=== PATIENT | male | born 1980 | race Caucasian/White ===

== ENCOUNTER 2017-11-18 16:18 | Inpatient (IN) | payer MEDICAID ==
[~2017-11-18] VITALS: Ht 182.9 cm; Wt 80.0 kg
--- NOTE | ~2017-11-18 | OP ---
PATIENT NAME: ARVIND SELBY MEDICAL RECORD: [id number] :76 LOCATION:[facility] ADMISSION DATE:11/18/17 SURGEON: SUGEY ARREDONDO MD DATE OF OPERATION: 11/19/2017 PREOPERATIVE DIAGNOSIS: Left groin mass. POSTOPERATIVE DIAGNOSES: Left groin abscess. PROCEDURE: Excisional debridement of left groin abscess with marsupialization and packing. Dimensions of debridement, including margins, measured 1.9 x 1.8 cm included skin and subcutaneous tissue as well as a portion of the abscess cavity. I sharply debrided back to viable bleeding tissue. SURGEON: Sugey Arredondo MD CHANGE MANAGEMENT LEAD: None. BLOOD LOSS: Minimal. ANESTHESIA: General. COMPLICATIONS: None. OPERATIVE COURSE: The patient was conveyed to the operating room electively on 11/19/2017. General anesthesia was induced by the anesthesia staff. The genitals and lower abdomen were sterilely prepped and draped. A circular incision was accomplished sharply, overlying the swollen area. I dissected down into an abscess cavity. Cultures were obtained. The plug of tissue was excised. I aspirated a significant amount of pus. The aleman of the abscess cavity did not contain granulation tissue, but instead were smooth. I irrigated with hydrogen peroxide. I then marsupialized the wound with a running locking 3-0 Vicryl Rapide suture. We then packed with Iodophor gauze that had had some knots tied in it. A sterile dressing was applied. The patient was then extubated and conveyed to post-anesthesia care unit where he was in stable condition. TRANSINT:[id number] Voice Confirmation ID: [id number] DOCUMENT ID: [id number] SUGEY ARREDONDO MD at 2120 CC: Chiara JERONIMO and AMANUEL BAKER MD [id number] DICTATION DATE: 11/20/171954 MANAGER SOCIAL: 11/20/172127 ADM IN [place] [id number] [place] [address]
[2017-11-18 16:53] LABS: BASOPHILS 0.2 % (0-2); EOSINOPHILS 1.6 % (0-7); HEMATOCRIT 36.4 % (42.0-54.0); HEMOGLOBIN 12.2 g/dL (13.5-17.5); IMMATURE GRANULOCYTES 0.4 % (0-5); LYMPHOCYTES 27.2 % (15-50); MCH 31.7 pg (26.0-34.0); MCHC 33.5 g/dL (31.0-37.0); MCV 94.5 fL (80.0-100.0); MEAN PLATELET VOLUME 11.1 fL (7.4-10.4); MONOCYTES 9.2 % (2-11); NEUTROPHILS 61.4 % (40-80); PLATELET COUNT 181 10x3/uL (130-400); RBC 3.85 10x6/uL (4.20-6.10); RDW 14.3 % (11.5-14.5); WBC 12.9 10x3/uL (4.8-10.8)
[2017-11-18 17:08] LABS: ALBUMIN 3.3 g/dL (3.4-5.0); ALKALINE PHOSPHATASE 59 U/L (46-116); ALT (SGPT) 21 U/L (10-68); BILIRUBIN - TOTAL 0.19 mg/dL (0.2-1.3); CALC OSMOLALITY 277 mosm/kg (275-300); CALCIUM 8.7 mg/dL (8.5-10.1); CARBON DIOXIDE 28.5 mmol/L (21.0-32.0); CHLORIDE - SERUM 102 mmol/L (98-107); CREATININE - SERUM 1.1 mg/dL (0.6-1.3); GLUCOSE 95 mg/dL (74-106); PROTEIN - SERUM 7.5 g/dL (6.4-8.2); SODIUM 139 mmol/L (136-145); UREA NITROGEN 13 mg/dL (7-18); eGFR NON AFRICAN AMERICAN 79 mL/min (90-120)
[2017-11-18 18:50] LABS: APTT 25.7 SECONDS (22.8-39.4); INR 0.95 (0.85-1.17); PROTIME 12.3 SECONDS (11.6-15.0)
[2017-11-18 19:25] LABS: CKMB 0.6 U/L (0.0-3.6); CREATINE KINASE 53 UL (21-232)
[2017-11-18 19:27] LABS: TROPONIN-I < 0.017 ng/mL (0.000-0.060)
[2017-11-19 03:52] VITALS: BP 109/65; BMI 23.9
[2017-11-19 05:38] LABS: BASOPHILS 0.2 % (0-2); EOSINOPHILS 2.2 % (0-7); HEMATOCRIT 35.6 % (42.0-54.0); HEMOGLOBIN 11.8 g/dL (13.5-17.5); IMMATURE GRANULOCYTES 0.4 % (0-5); LYMPHOCYTES 33.4 % (15-50); MCH 31.1 pg (26.0-34.0); MCHC 33.1 g/dL (31.0-37.0); MCV 93.9 fL (80.0-100.0); MEAN PLATELET VOLUME 10.8 fL (7.4-10.4); MONOCYTES 10.5 % (2-11); NEUTROPHILS 53.3 % (40-80); PLATELET COUNT 165 10x3/uL (130-400); RBC 3.79 10x6/uL (4.20-6.10); RDW 14.5 % (11.5-14.5); WBC 10.3 10x3/uL (4.8-10.8)
[2017-11-19 06:10] VITALS: BP 98/57
[2017-11-19 06:20] LABS: ALBUMIN 2.8 g/dL (3.4-5.0); ALKALINE PHOSPHATASE 50 U/L (46-116); ALT (SGPT) 20 U/L (10-68); BILIRUBIN - TOTAL 0.45 mg/dL (0.2-1.3); CALC OSMOLALITY 280 mosm/kg (275-300); CALCIUM 8.3 mg/dL (8.5-10.1); CARBON DIOXIDE 27.2 mmol/L (21.0-32.0); CHLORIDE - SERUM 104 mmol/L (98-107); GLUCOSE 96 mg/dL (74-106); PROTEIN - SERUM 6.7 g/dL (6.4-8.2); SODIUM 141 mmol/L (136-145); UREA NITROGEN 12 mg/dL (7-18); eGFR NON AFRICAN AMERICAN 88 mL/min (90-120)
[2017-11-19 08:26] LABS: APPEARANCE CLEAR (CLEAR); BILIRUBIN NEGATIVE (NEGATIVE); COLOR YELLOW (YELLOW); GLUCOSE NEGATIVE (NEGATIVE); KETONE NEGATIVE (NEGATIVE); NITRITE NEGATIVE (NEGATIVE); PROTEIN NEGATIVE (NEGATIVE); SPECIFIC GRAVITY 1.005 (1.005-1.020); UROBILINOGEN NORMAL (NORMAL)
[2017-11-19 11:39] VITALS: BP 102/58
[2017-11-19 20:40] VITALS: BP 97/63
[2017-11-19 20:44] VITALS: Ht 182.9 cm; Wt 80.0 kg
[2017-11-19 23:50] VITALS: BP 107/58
[2017-11-20 05:19] LABS: BASOPHILS 0.2 % (0-2); EOSINOPHILS 0.5 % (0-7); HEMATOCRIT 33.1 % (42.0-54.0); HEMOGLOBIN 11.1 g/dL (13.5-17.5); IMMATURE GRANULOCYTES 0.3 % (0-5); LYMPHOCYTES 27.2 % (15-50); MCH 31.3 pg (26.0-34.0); MCHC 33.5 g/dL (31.0-37.0); MCV 93.2 fL (80.0-100.0); MEAN PLATELET VOLUME 10.9 fL (7.4-10.4); MONOCYTES 8.5 % (2-11); NEUTROPHILS 63.3 % (40-80); PLATELET COUNT 174 10x3/uL (130-400); RBC 3.55 10x6/uL (4.20-6.10); RDW 14.2 % (11.5-14.5)
[2017-11-20 05:31] LABS: WBC 15.5 10x3/uL (4.8-10.8)
[2017-11-20 05:48] LABS: C-REACTIVE PROTEIN 0.9 mg/dL (0.0-0.9); CALC OSMOLALITY 279 mosm/kg (275-300); CALCIUM 8.4 mg/dL (8.5-10.1); CARBON DIOXIDE 27.1 mmol/L (21.0-32.0); CHLORIDE - SERUM 103 mmol/L (98-107); GLUCOSE 132 mg/dL (74-106); POTASSIUM - SERUM 3.8 mmol/L (3.5-5.1); SODIUM 139 mmol/L (136-145); UREA NITROGEN 12 mg/dL (7-18); eGFR NON AFRICAN AMERICAN 88 mL/min (90-120)
[2017-11-20 05:51] VITALS: BP 101/63
[2017-11-20 08:18] VITALS: BP 94/74
[2017-11-20 13:10] VITALS: BP 99/78
[2017-11-20 16:40] VITALS: BP 108/54
[2017-11-20 20:55] VITALS: BP 99/63
[2017-11-21 04:40] VITALS: BP 97/54
[2017-11-21 06:29] LABS: BASOPHILS 0.3 % (0-2); EOSINOPHILS 2.2 % (0-7); HEMATOCRIT 37.5 % (42.0-54.0); HEMOGLOBIN 12.7 g/dL (13.5-17.5); IMMATURE GRANULOCYTES 0.3 % (0-5); LYMPHOCYTES 34.8 % (15-50); MCH 31.9 pg (26.0-34.0); MCHC 33.9 g/dL (31.0-37.0); MCV 94.2 fL (80.0-100.0); MEAN PLATELET VOLUME 10.9 fL (7.4-10.4); MONOCYTES 9.3 % (2-11); NEUTROPHILS 53.1 % (40-80); PLATELET COUNT 172 10x3/uL (130-400); RBC 3.98 10x6/uL (4.20-6.10); RDW 14.4 % (11.5-14.5)
[2017-11-21 06:32] LABS: WBC 10.5 10x3/uL (4.8-10.8)
[2017-11-21 06:50] LABS: CALC OSMOLALITY 281 mosm/kg (275-300); CARBON DIOXIDE 28.3 mmol/L (21.0-32.0); CHLORIDE - SERUM 103 mmol/L (98-107); CREATININE - SERUM 1.1 mg/dL (0.6-1.3); GLUCOSE 95 mg/dL (74-106); SODIUM 141 mmol/L (136-145); UREA NITROGEN 15 mg/dL (7-18); eGFR NON AFRICAN AMERICAN 79 mL/min (90-120)
[2017-11-21 06:56] LABS: POTASSIUM - SERUM 4.4 mmol/L (3.5-5.1)
[2017-11-21 08:17] LABS: RAPID PLASMA REAGIN Non Reactive (Non Reactive)
[2017-11-21 11:01] VITALS: BP 92/56
[2017-11-21 15:11] VITALS: BP 94/55
[2017-11-21 21:30] VITALS: BP 110/64
[2017-11-22 00:50] VITALS: BP 112/67
[2017-11-22 05:15] VITALS: BP 103/63
[2017-11-22 21:50] VITALS: BP 120/66
[2017-11-23 05:15] VITALS: BP 113/68
[2017-11-23 08:49] VITALS: BP 98/63
[2017-11-23 16:13] LABS: HISTOPLASMA GAL MANNAN AG SER <0.5 (<0.5 ng/mL)
[2017-11-23 20:00] VITALS: BP 117/58
[2017-11-24 06:18] VITALS: BP 94/48
[2017-11-24 08:26] VITALS: BP 128/71
[2017-11-24 22:27] VITALS: BP 103/57
[2017-11-25 05:08] VITALS: BP 97/56
[2017-11-25 08:43] VITALS: BP 99/62
[2017-11-25 12:40] VITALS: BP 103/56
[2017-11-25 16:46] VITALS: BP 102/45
[2017-11-25 20:00] VITALS: BP 106/65
[2017-11-26] VITALS (7 sets, daily range): BP systolic 85–115; BP diastolic 53–78
[2017-11-26 12:26] LABS: F. TULARENSIS - IGG Negative (()); F. TULARENSIS - IGM Negative (())
[2017-11-27 06:26] VITALS: BP 104/57
[2017-11-27 08:48] VITALS: BP 103/69
[2017-11-27 12:30] VITALS: BP 100/68
[2017-11-27 14:23] LABS: AFB SPECIMEN PROCESSING Concentration (()); FUNGUS STAIN Final report (())
[2017-11-27 16:56] VITALS: BP 106/66
[2017-11-27 20:08] LABS: ACID FAST SMEAR Negative (())
[2017-11-27 22:31] VITALS: BP 106/70
[2017-11-28 04:00] VITALS: BP 114/72
[2017-11-28 09:13] VITALS: BP 90/50
[2017-11-28 20:00] VITALS: BP 100/61
[2017-11-29 04:00] VITALS: BP 96/60
[2017-11-29 09:10] VITALS: BP 126/79
[2017-11-30 10:13] LABS: CHLAMYDIA TRACHOMATIS, NAA Negative (Negative)
[2017-12-02 14:15] LABS: FUNGUS CULTURE RESULT 1 Candida albicans (()); FUNGUS MYCOLOGY CULTURE Preliminary report (()); FUNGUS STAIN RESULT 1 Yeast observed (())
== END 2017-11-29 15:28 | disposition home or self-care (01) | DRG 571 ==
LOC: D.ER 16:18 → D.EDHOLD 18:31 → D.MS 18:31
PROVIDERS: Family Medicine; Student in an Organized Health Care Education/Training Program; Surgery
PROC: 0JBC0ZZ Excision of Pelvic Region Subcutaneous Tissue and Fascia, Open Approach (ICD-10-PCS; principal; 2017-11-19 08:30)
PROC: 07BH0ZX Excision of Right Inguinal Lymphatic, Open Approach, Diagnostic (ICD-10-PCS; 2017-11-26)
DX: L02.214 Cutaneous abscess of groin (principal); F17.203 Nicotine dependence unspecified, with withdrawal; I88.9 Nonspecific lymphadenitis, unspecified